=== PATIENT | male | born 1985 | race African-American/Black ===

== ENCOUNTER 2017-11-08 15:21 | Emergency (ER) | payer OTHER ==
[~2017-11-08] VITALS: Ht 195.6 cm; Wt 86.2 kg
[~2017-11-08 15:21] MED LIST: ANTIVIRAL; BACTRIM DS TAB1 EACH PO; DOXYCYCLINE 10100 MG PO; EAR WAX REMOVAL15 ML OT; IBUPROFEN 800800 MG PO; LEVAQUIN 500 M500 M1 PO; MEDROL DOSPAK21 TAB PO; MEDROLDOSEPACK PO; MIRALAX255 GM PO; NAPROSYN500 MG PO; NOHOMEMEDICATIONS; NORCO 5-325 TA1 EACH PO; PERMETHRIN60 GM TOP; PROVENTIL HFA6.7 G1; STRIBILD TABLE1 EACH PO; TRAMADOL 50 MG50 MG PO; ULTRAM 50MG TAB50 MG PO
[2017-11-08 15:39] LABS: URINE BILIRUBIN 1+ (Negative); URINE BLOOD TRACE (Negative); URINE CLARITY CLEAR; URINE COLOR YELLOW; URINE GLUCOSE-RANDOM* NEGATIVE (Negative); URINE KETONES NEGATIVE (Negative); URINE LEUKOCYTES-REFLEX NEGATIVE (Negative); URINE NITRITE-REFLEX NEGATIVE (Negative); URINE PROTEIN (DIPSTICK) 2+ (Negative); URINE SPECIFIC GRAVITY >= 1.030 (1.005-1.035); URINE UROBILINOGEN 0.2 E.U./dl (0.2-1.0)
[2017-11-08 15:42] LABS: ICTOTEST (BILI CONFIRMATORY) Positive (Negative)
[2017-11-08 15:52] LABS: CASTS None Seen /LPF (None Seen); CRYSTALS None Seen /LPF (None Seen); SQUAMOUS 0-3 Few /LPF (0-3)
[2017-11-08 15:53] LABS: BACTERIA-REFLEX 1-9 Few /HPF (None Seen); URINE RBC 3-10 Few /HPF (0-2); URINE WBC-REFLEX 0-5 Rare /HPF (0-5)
[2017-11-08 16:07] VITALS: BP 132/84
== END 2017-11-08 16:10 | disposition home or self-care (01) ==
LOC: ER 15:21
PROVIDERS: Physician Assistant
DX: N34.2 Other urethritis (principal); J45.909 Unspecified asthma, uncomplicated; Z86.73 Personal history of transient ischemic attack (TIA), and cerebral infarction without residual deficits; Z88.2 Allergy status to sulfonamides

== ENCOUNTER 2017-11-24 19:26 | Emergency (ER) | payer OTHER ==
[~2017-11-24] VITALS: Ht 190.5 cm; Wt 90.7 kg
[2017-11-24 19:38] LABS: URINE BILIRUBIN NEGATIVE (Negative); URINE BLOOD 1+ (Negative); URINE CLARITY CLEAR; URINE COLOR YELLOW; URINE GLUCOSE-RANDOM* NEGATIVE (Negative); URINE KETONES NEGATIVE (Negative); URINE LEUKOCYTES NEGATIVE (Negative); URINE NITRITE NEGATIVE (Negative); URINE PROTEIN (DIPSTICK) 1+ (Negative); URINE SPECIFIC GRAVITY >= 1.030 (1.005-1.035); URINE UROBILINOGEN 0.2 E.U./dl (0.2-1.0)
[2017-11-24] MEDS ORDERED: FLAGYL500 MG PO (19:45)
[2017-11-24 19:52] LABS: BACTERIA None Seen /HPF (None Seen); CASTS None Seen /LPF (None Seen); CRYSTALS None Seen /LPF (None Seen); SQUAMOUS 4-10 Moderate /LPF (0-3); URINE RBC 3-10 Few /HPF (0-2); URINE WBC None Seen /HPF (0-5)
[2017-11-24 20:00] VITALS: BP 131/87
== END 2017-11-24 20:01 | disposition home or self-care (01) ==
LOC: ER 19:26
PROVIDERS: Emergency Medicine
DX: A64 Unspecified sexually transmitted disease (principal); J45.909 Unspecified asthma, uncomplicated; F17.210 Nicotine dependence, cigarettes, uncomplicated; Z88.2 Allergy status to sulfonamides

== ENCOUNTER 2018-04-17 15:50 | Emergency (ER) | payer OTHER ==
[~2018-04-17] VITALS: Ht 188 cm; Wt 83.9 kg
[~2018-04-17 15:50] MED LIST changes: +FLAGYL500 MG PO
[2018-04-17] MEDS ORDERED: GENVOYA TABLET1 EACH PO (15:58)
[2018-04-17] MEDS ORDERED: TRAMADOL 50 MG50 MG PO (16:22)
[2018-04-17] MEDS ORDERED: CEFDINIR300 MG PO (16:22)
[2018-04-17 16:36] VITALS: BP 130/77
== END 2018-04-17 16:37 | disposition home or self-care (01) ==
LOC: ER 15:50
DX: H66.92 Otitis media, unspecified, left ear (principal); J45.909 Unspecified asthma, uncomplicated; F17.210 Nicotine dependence, cigarettes, uncomplicated; Z88.2 Allergy status to sulfonamides